=== PATIENT | male | born 1990 | race African-American/Black ===

== ENCOUNTER 2020-06-08 21:07 | Observation (INO) | payer SELFPAY ==
[2020-06-08 22:12] LABS: #Lymphocytes 2.5 thou/uL (1.20-3.40); #Monocytes 0.8 thou/uL (0.11-0.59); #Neutrophils 10.2 thou/uL (1.40-6.50); %Basophils 0.1 % (0.0-1.0); %Eosinophils 0.1 % (0.0-10.0); %Lymphocytes 18.6 % (21.0-51.0); %Monocytes 5.6 % (0.0-10.0); %Neutrophils 75.6 % (42.0-75.0); Hemoglobin 11.7 g/dL (14.0-18.0); Mean Corpuscular HGB CONC 32.9 g/dL (32.0-36.0); Mean Corpuscular Hemoglobin 28.7 pg (27.0-31.0); Mean Corpuscular Volume 87.3 fL (78.0-98.0); Mean Platelet Volume 7.8 fL (7.4-10.4); Platelet Count 217 thou/uL (130-400); RBC Distribution Width 12.2 % (11.5-14.5); Red Blood Cell (RBC) Count 4.08 mill/uL (4.70-6.10); White Blood Cell (WBC) Count 13.5 thou/uL (4.8-10.8)
[2020-06-08 22:18] LABS: INR-International Normal Ratio 1.1; Prothrombin Time 14.1 sec (12.0-14.7)
[2020-06-08 22:19] LABS: PTT 33.5 sec (22.9-36.1)
[2020-06-08] MEDS ORDERED: Ondansetron PF 4 MG/2 ML Vial ONE (22:22)
[2020-06-08] MEDS ORDERED: Morphine 4 MG/ML VIAL ONE (22:22)
[2020-06-08 22:31] LABS: ALT (SGPT) 11 U/L (8-55); AST (SGOT) 13 U/L (5-34); Albumin 3.9 g/dL (3.5-5.0); Alkaline Phosphatase 74 U/L (40-110); Anion Gap 14 mmol/L (10-20); BUN (Urea Nitrogen) 9 mg/dL (8.9-20.6); Bilirubin, Total 0.3 mg/dL (0.2-1.2); Calc. Creatinine Clearance 0 mL/min (70-130); Calcium 8.8 mg/dL (7.8-10.44); Carbon Dioxide 24 mmol/L (22-29); Chloride 107 mmol/L (98-107); Estimated GFR-MDRD Greater than 90; Globulin 2.8 g/dL (2.4-3.5); Glucose 93 mg/dL (70-105); Potassium 4.8 mmol/L (3.5-5.1); Protein, Total 6.7 g/dL (6.0-8.3); Sodium 140 mmol/L (136-145)
[2020-06-08] MEDS ORDERED: Lidocaine 1% w/Epinephrine 1:100K 20 ML VIAL ONE (22:43)
[2020-06-09] MEDS ORDERED: Ondansetron PF 4 MG/2 ML Vial IVP PRN (00:47)
[2020-06-09] MEDS ORDERED: traMADol HCl 50 MG TAB PO PRN ×2 (00:47→15:05)
[2020-06-09] MEDS ORDERED: Ondansetron ODT 4 MG TAB PO PRN (00:47)
[2020-06-09] MEDS ORDERED: Cyclobenzaprine 10 MG TAB PO PRN (00:47)
[2020-06-09] MEDS ORDERED: Dextrose 50% Abboject 50 ML SYRINGE SLOW IVP PRN (00:47)
[2020-06-09] MEDS ORDERED: Dextrose 5% in Water 1,000 ML IV PRN (00:47)
[2020-06-09] MEDS: Ibuprofen 600 MG TAB PO PRN ×2 (01:15→09:37)
[2020-06-09] MEDS: Sodium Chloride 0.9% 1,000 ML IV SCH ×2 (01:16→09:36)
[2020-06-09] MEDS: traMADol HCl 50 MG TAB PO PRN ×2 (01:16→06:49)
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
[2020-06-09 02:48] VITALS: BMI 20.7
[2020-06-09 03:45] LABS: Bacteria/HPF None Seen HPF (None Seen); Bilirubin Negative (Negative); Blood, Urine Negative (Negative); Clarity Clear (Clear); Glucose, Urine (Dipstick) Normal (Negative); Ketone, Urine 60 mg/dL (Negative); Leukocyte Negative Leu/uL (Negative); Nitrite Negative (Negative); Protein, Urine (Dipstick) 20 mg/dL (Neg-Trace); Specific Gravity, Urine 1.049 (1.002-1.036); Squamous Epithelial 0-3 HPF (0-3); Urobilinogen Normal mg/dL (Less than 2); pH, Urine 5.5 (5.0-9.0)
[2020-06-09 03:46] LABS: Urine Culture Reflex Yes Yes
[2020-06-09 04:25] LABS: SARS-CoV-2 MS2 Positive; SARS-CoV-2 N Gene Negative; SARS-CoV-2 S Gene Negative; SARS-CoV-2 by NAA Not Detected (NotDetected); SARS-CoV-2 orf1ab Negative
[2020-06-09] MEDS: Acetaminophen 500 MG TAB PO SCH ×3 (05:00→17:45)
[2020-06-09 05:53] LABS: #Basophils 0.1 thou/uL (0.0-0.2); #Lymphocytes 2.9 thou/uL (1.20-3.40); #Monocytes 0.9 thou/uL (0.11-0.59); #Neutrophils 8.2 thou/uL (1.40-6.50); %Basophils 0.5 % (0.0-1.0); %Eosinophils 0.3 % (0.0-10.0); %Lymphocytes 24.2 % (21.0-51.0); %Monocytes 7.3 % (0.0-10.0); %Neutrophils 67.6 % (42.0-75.0); Hemoglobin 10.6 g/dL (14.0-18.0); Mean Corpuscular HGB CONC 32.8 g/dL (32.0-36.0); Mean Corpuscular Hemoglobin 28.9 pg (27.0-31.0); Mean Corpuscular Volume 88.3 fL (78.0-98.0); Mean Platelet Volume 7.8 fL (7.4-10.4); Platelet Count 191 thou/uL (130-400); RBC Distribution Width 12.3 % (11.5-14.5); Red Blood Cell (RBC) Count 3.67 mill/uL (4.70-6.10); White Blood Cell (WBC) Count 12.1 thou/uL (4.8-10.8)
[2020-06-09 06:12] LABS: Anion Gap 12 mmol/L (10-20); BUN (Urea Nitrogen) 8 mg/dL (8.9-20.6); Calc. Creatinine Clearance 132 mL/min (70-130); Calcium 8.5 mg/dL (7.8-10.44); Carbon Dioxide 22 mmol/L (22-29); Chloride 106 mmol/L (98-107); Estimated GFR-MDRD Greater than 90; Glucose 68 mg/dL (70-105); Potassium 4.1 mmol/L (3.5-5.1); Sodium 136 mmol/L (136-145)
[2020-06-09] MEDS: Famotidine 20 MG TAB PO SCH ×2 (09:37→21:19)
[2020-06-09] MEDS: traMADol HCl 50 MG TAB PO SCH (17:46)
[2020-06-09] MEDS: Ibuprofen 600 MG TAB PO SCH (21:19)
[2020-06-10] MEDS: Acetaminophen 500 MG TAB PO SCH ×3 (00:01→11:55)
[2020-06-10] MEDS: traMADol HCl 50 MG TAB PO SCH ×3 (00:02→11:57)
[2020-06-10] MEDS: Ibuprofen 600 MG TAB PO SCH ×2 (05:14→14:32)
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
[2020-06-10] MEDS: Famotidine 20 MG TAB PO SCH (09:00)
[2020-06-10 11:38] VITALS: BP 128/76; TEMP 98.1
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
== END 2020-06-10 16:11 | disposition home or self-care (01) ==
LOC: ERS 21:07 → SURG B 23:17 → INTOOBSV 23:17
PROVIDERS: ADMIT Surgery; ATTEND Surgery
DX: S31.133A Puncture wound of abdominal wall without foreign body, right lower quadrant without penetration into peritoneal cavity, initial encounter (principal); S61.412A Laceration without foreign body of left hand, initial encounter; F17.210 Nicotine dependence, cigarettes, uncomplicated; Z20.828 Contact with and (suspected) exposure to other viral communicable diseases; X99.9XXA Assault by unspecified sharp object, initial encounter
CPT/HCPCS: 12002; 36415; 80048; 80053; 81001; 85025; 85610; 85730; 87086; 87635; 96374; 96375; 96376; G0378; G0390; J2270; J2405; U0003